=== PATIENT | male | born 1990 | race Hispanic/Latino ===

== ENCOUNTER 2018-08-03 23:10 | Emergency (ER) | payer SELFPAY ==
[2018-08-04] MEDS ORDERED: Sodium Chloride 0.9% 1,000 ML IV STA (00:30)
[2018-08-04 00:47] LABS: VENOUS BLOOD GAS BASE EXCESS 9.7 mmol/L (0.0-2.0); VENOUS BLOOD GAS PCO2 45 mmHg (40-60); VENOUS BLOOD GAS PO2 25 mm/Hg (30-55); VENOUS BLOOD PH 7.49 (7.32-7.43)
--- NOTE | 2018-08-04 00:48 | ED PDOC ---
HPI: Abdomen Time Seen by Provider: 08/04/18 00:06 Chief Complaint (Nursing): Abdominal Pain Chief Complaint (Provider): Abdominal Pain History Per: Patient History/Exam Limitations: no limitations Onset/Duration Of Symptoms: Days (x 1) Current Symptoms Are (Timing): Still Present Quality Of Discomfort: "Pain" Associated Symptoms: Vomiting Exacerbating Factors: Movement Additional Complaint(s): 28 year old male with a history of asthma and seasonal allergies presents to the ER for evaluation of abdominal pain and vomiting for the last day. Patient reports pain is worse with movement. He is unable to tolerate any PO, except small sips of water, without vomiting. He did not take any medications prior to arrival. Patient arrived from [place] yesterday. PMD: in [place] Past Medical History Reviewed: Historical Data, Nursing Documentation, Vital Signs Vital Signs: Last Vital Signs Temp 98.6 F 08/03/18 23:34 Pulse 108 H 08/03/18 23:34 Resp 20 08/03/18 23:34 BP 125/75 08/03/18 23:34 Pulse Ox 100 08/03/18 23:34 - Medical History PMH: Asthma - Surgical History Surgical History: No Surg Hx - Family History Family History: States: Unknown Family Hx - Home Medications Home Medications: Ambulatory Orders Medication Instructions Recorded Clotrimazole 1% Cream [Lotrimin 1%] 1 applic TP BID 14 Days cre 08/04/18 Ondansetron ODT [Zofran ODT] 4 mg PO Q6 #20 odt 08/04/18 - Allergies Allergies/Adverse Reactions: Allergies Allergy/AdvReac Type Severity Reaction Status Date / Time No Known Allergies Allergy Verified 08/03/18 23:34 Review of Systems ROS Statement: Except As Marked, All Systems Reviewed And Found Negative Constitutional: Negative for: Fever, Chills Gastrointestinal: Positive for: Vomiting, Abdominal Pain. Negative for: Diarrhea Physical Exam - Reviewed Nursing Documentation Reviewed: Yes Vital Signs Reviewed: Yes - Physical Exam Appears: Positive for: Non-toxic, No Acute Distress Head Exam: Positive for: ATRAUMATIC, NORMAL INSPECTION, NORMOCEPHALIC Skin: Positive for: Normal Color, Diaphoresis, Pallor Eye Exam: Positive for: EOMI, Normal appearance, PERRL Neck: Positive for: Normal, Painless ROM, Supple Cardiovascular/Chest: Positive for: Tachycardia (with regular rhythm) Respiratory: Positive for: Normal Breath Sounds. Negative for: Respiratory Distress Gastrointestinal/Abdominal: Positive for: Tenderness (diffuse), Guarding. Negative for: Other (localized to the area) Back: Positive for: Normal Inspection. Negative for: L CVA Tenderness, R CVA Tenderness Extremity: Positive for: Normal ROM (x 4). Negative for: Deformity Neurological/Psych: Positive for: Awake, Alert, Normal Tone, Oriented (x 3). Negative for: Motor/Sensory Deficits - Laboratory Results Result Diagrams: 08/04/18 00:40 08/04/18 00:40 - ECG O2 Sat by Pulse Oximetry: 100 (RA) Pulse Ox Interpretation: Normal Medical Decision Making Medical Decision Makin:20 MDM: workup for vomiting and abdominal pain Labs, UA, Zofran, Toradol for pain, IV fluids Reassess ------- Scribe Attestation: Documented by Kiana Mcdonald, acting as a scribe Lonnie Francois MD Provider Scribe Attestation: All medical record entries made by the Scribe were at my direction and personall y dictated by me. I have reviewed the chart and agree that the record accurately reflects my personal performance of the history, physical exam, medical decision making, and the department course for this patient. I have also personally directed, reviewed, and agree with the discharge instructions and disposition. Disposition - Clinical Impression Clinical Impression: Abdominal pain, Gastroenteritis - Disposition Disposition: Routine/Home Disposition Time: 03:15 Condition: IMPROVED Additional Instructions: Take Zofran as needed for nausea. Follow up with primary medical doctor in one week to re-evaluate labs and urine (yeast was found in urine without other signs of urinary tract infection). Return to the emergency department if symptoms worsen or if new symptoms develop. Prescriptions: Clotrimazole 1% Cream [Lotrimin 1%] 1 applic TP BID 14 Days cre Ondansetron ODT [Zofran ODT] 4 mg PO Q6 #20 odt Instructions: Viral Gastroenteritis, Adult (DC) Forms: [employer] (Japanese) Print Language: BULGARIAN
[2018-08-04 00:51] LABS: BASO % 0.4 % (0.0-2.0); EOS % 0.1 % (0.0-4.0); HEMOGLOBIN 15.8 g/dL (12.0-18.0); LYMPH # 1.5 K/uL (1.0-4.3); LYMPH % 20.1 % (20.0-40.0); MEAN CELL VOLUME 92.3 fl (80.0-94.0); MEAN CORPUSCULAR HEMOGLOBIN 32.3 pg (27.0-31.0); MEAN CORPUSCULAR HGB CONC 34.9 g/dL (33.0-37.0); MEAN PLATELET VOLUME 6.9 fl (7.2-11.7); MONO % 13.3 % (0.0-10.0); NEUT % 66.1 % (50.0-75.0); NRBC % 0.1 % (0.0-0.0); RBC 4.9 Mil/uL (4.40-5.90); RED CELL DISTRIBUTION WIDTH 13.8 % (11.5-14.5); WHITE BLOOD COUNT 7.6 K/uL (4.8-10.8)
[2018-08-04 00:58] LABS: INR 1.1; PROTHROMBIN TIME 12.2 Seconds (9.8-13.1)
[2018-08-04 01:00] LABS: PARTIAL THROMBOPLASTIN TIME 33.2 Seconds (25.6-37.1)
[2018-08-04 01:03] LABS: ALB/GLOB RATIO 1.1 (1.0-2.1); ALBUMIN 4.6 g/dL (3.5-5.0); ALT/SGPT 74 U/L (21-72); AST/SGOT 61 U/L (17-59); BLOOD UREA NITROGEN 12 mg/dl (9-20); CALCIUM 9.6 mg/dL (8.4-10.2); GFR NON-AFRICAN AMERICAN > 60; LIPASE 303 U/L (23-300)
[2018-08-04] MEDS ORDERED: Sodium Chloride 0.9% 50 ML IV ONE (02:05)
[2018-08-04] MEDS ORDERED: Iohexol 300 100 ML IJ ONE (02:05)
[2018-08-04 03:02] LABS: URINE BACTERIA RARE (<OCC); URINE BILIRUBIN NEGATIVE (NEGATIVE); URINE BLOOD NEGATIVE (NEGATIVE); URINE CLARITY CLOUDY (Clear); URINE COLOR YELLOW (YELLOW); URINE GLUCOSE (UA) NEG (NEGATIVE); URINE LEUKOCYTE ESTERASE NEG Leu/uL (Negative); URINE PROTEIN 100 mg/dL (NEGATIVE)
[2018-08-04 03:40] VITALS: BP 124/76; PULSE 77; RESP 16; TEMP 98.7
--- NOTE | 2018-08-04 09:26 | CARD ---
APPROVED REPORT Date of service: 08/04/2018 EKG Measurement Heart [id number] <Conclusion> Sinus tachycardia Otherwise normal ECG
--- NOTE | 2018-08-04 12:22 | CT ---
Date of service: 08/04/2018 PROCEDURE: CT Abdomen and Pelvis with contrast HISTORY: abd pain, vomiting COMPARISON: None. TECHNIQUE: Intravenous contrast dose: 90 cc Omnipaque 300. Radiation dose: Total exam DLP = 180.43 mGy-cm. This CT exam was performed using one or more of the following dose reduction techniques: Automated exposure control, adjustment of the mA and/or kV according to patient size, and/or use of iterative reconstruction technique. FINDINGS: LOWER THORAX: Unremarkable. LIVER: Hepatic steatosis. No focal masses. No intrahepatic bile duct dilatation or perihepatic ascites. GALLBLADDER AND BILE DUCTS: Unremarkable. PANCREAS: Unremarkable. No gross lesion or ductal dilatation. SPLEEN: Unremarkable. ADRENALS: Unremarkable. No mass. KIDNEYS AND URETERS: Unremarkable. No hydronephrosis. No solid mass. VASCULATURE: Unremarkable. No aortic aneurysm. No atherosclerotic calcification or mural plaque present. BOWEL: Evidence of mild and diffuse enteritis without obstructing lesion or other pathologic process. Diffuse moderate gastritis without obstructing lesion. APPENDIX: Normal appendix. PERITONEUM: Unremarkable. No free fluid. No free air. LYMPH NODES: Unremarkable. No enlarged lymph nodes. BLADDER: Unremarkable. REPRODUCTIVE: Unremarkable. BONES: No acute fracture. OTHER FINDINGS: None. IMPRESSION: Mild-moderate gastroenteritis. No obstructing lesions identified. Additional benign and/or incidental findings described above. Concordant results (preliminary interpretation) provided by [employer]. Procedure Completed: 02:13. Preliminary Report: Interpreted and electronically signed: 03:10. Final Interpretation: 12:18.
--- NOTE | 2018-08-04 13:13 | RAD ---
Date of service: 08/04/2018 HISTORY: possible admission COMPARISON: No prior. TECHNIQUE: 1 view obtained. FINDINGS: LUNGS: No consolidation. Bilateral hyperaeration Right suprahilar 1.2 cm nodular opacity-its clinical significance-if any is unclear-its density in conspicuity in terms of vessel seen on end is slightly greater than typically seen. However this is still not excluded-namely a vessel seen on end. To clarify, consider an elective CT chest study with IV contrast enhancement. PLEURA: No significant pleural effusion identified, no pneumothorax apparent. CARDIOVASCULAR: No aortic atherosclerotic calcification present. Normal cardiac size. No pulmonary vascular congestion. OSSEOUS STRUCTURES: No significant abnormalities. VISUALIZED UPPER ABDOMEN: Normal. OTHER FINDINGS: None. IMPRESSION: No consolidation. Bilateral hyperaeration. Indeterminate the right suprahilar nodular opacity-slightly greater in conspicuity in density than typically seen for vessel seen on end although this is not excluded. Its clinical significance, if any is unclear. For clarification consider an elective CT chest study with IV contrast enhancement.
[2018-08-08 17:00] VITALS: O2SAT 100
== END 2018-08-04 03:40 | disposition home or self-care (01) ==
LOC: H.ER 23:10
DX: K52.9 Noninfective gastroenteritis and colitis, unspecified (principal)
CPT/HCPCS: 71045; 74177; 80053; 81003; 82803; 83690; 85025; 85610; 85730; 87804; 93005; 96374; 96375; 99283; J1885; J2405; J7030; Q9967